=== PATIENT | male | born 1940 | race Caucasian/White ===

== ENCOUNTER → 2020-09-20 | Outpatient (CLI) | payer MEDICARE | LOC: KOH-I 13:00 | DX: H49.20 Sixth [abducent] nerve palsy, unspecified eye (principal) | CPT/HCPCS: 70450; 70480 ==

== ENCOUNTER 2021-01-10 16:58 | Emergency (ER) | payer MEDICARE ==
[2021-01-10 17:58] LABS: HEMOGLOBIN 16.1 gm/dl (14.0-17.5); RED BLOOD COUNT 5.2 M/UL (4.20-5.50); WHITE BLOOD COUNT 10.6 K/UL (4.5-11.0)
== END 2021-01-10 20:30 | disposition home or self-care (01) ==
LOC: ER1 16:58
PROVIDERS: Emergency Medicine
DX: E86.0 Dehydration (principal); E11.649 Type 2 diabetes mellitus with hypoglycemia without coma; I25.10 Atherosclerotic heart disease of native coronary artery without angina pectoris; Z20.822 Contact with and (suspected) exposure to COVID-19
CPT/HCPCS: 0240U; 36600; 70450; 71045; 80053; 80307; 82140; 82550; 82553; 82803; 82962; 83690; 83874; 83880; 84484; 85025; 85652; 86140; 93005; 99285; G0480; J7030

== ENCOUNTER → 2021-05-30 | Outpatient (CLI) | payer MEDICARE | LOC: HEART 5 10:00 | DX: I25.5 Ischemic cardiomyopathy (principal); I50.22 Chronic systolic (congestive) heart failure; I08.1 Rheumatic disorders of both mitral and tricuspid valves | CPT/HCPCS: 93306 ==

== ENCOUNTER → 2021-06-05 | Outpatient (CLI) | payer MEDICARE ==
[~2021-06-05] MED LIST: ATORVASTATIN CA40 MG PO; BUSPAR 10MG10 MG PO; CHLORTHALIDONE25 MG PO; CLINDAMYCIN HC300 MG PO; CLONIDINE HCL0.3 MG PO; CYCLOBENZAPRINE5 MG PO; CYMBALTA60 MG PO; DIGOX125 MCG PO; FENOFIBRATE160 MG PO; GLIPIZIDE10 MG PO; HUMALOG MI100 UNIT/4 SQ; HYDROCODON-ACE1 EAC4 PO; HYDROXYZINE PAM25 MG PO; ISOSORBIDE MONO60 MG PO; JARDIANCE25 MG PO; LANTUS100 UNIT/1 SQ; LEVOFLOXACIN500 MG PO; LISINOPRIL20 MG PO; METOPROLOL SUCC50 MG PO; NITROSTAT 0.4100 TAB SL; TRAZODONE HCL100 MG PO; VITAMIN D21250 MCG PO; ZETIA10 MG PO
[2021-06-05 11:49] LABS: HEMOGLOBIN 15.7 gm/dl (14.0-17.5); RED BLOOD COUNT 5.1 M/UL (4.20-5.50); WHITE BLOOD COUNT 7.8 K/UL (4.5-11.0)
== END ==
LOC: LAB 11:21
PROVIDERS: Internal Medicine Cardiovascular Disease
DX: Z45.010 Encounter for checking and testing of cardiac pacemaker pulse generator [battery] (principal); I50.22 Chronic systolic (congestive) heart failure; I25.5 Ischemic cardiomyopathy
CPT/HCPCS: 36415; 71046; 80048; 85025